=== PATIENT | male | born 1985 | race Caucasian/White ===

== ENCOUNTER 2017-08-04 20:59 | Emergency (ER) | payer SELFPAY ==
[~2017-08-04] VITALS: Ht 182.9 cm; Wt 102.1 kg
--- NOTE | 2017-08-04 21:11 | ED.ADGEN ---
Past History Past Medical History: Other Past Surgical History: Other Alcohol Use: None Drug Use: None Adult General Chief Complaint Chief Complaint ".. I think I got another spider bite on my Lt. leg... I ve had one before.. it looked this way.." HPI HPI Patient is a 32 year old male who presents with above hx and complaints insect bite Lt tolliver with surrounding erythema 10 x 12 cm. Pt. has no striations. No adenopathy. Distal neurovascular intact. Patient does not remember his last tetanus. No recent travel. No specific ill contacts. No history immunosuppression. Patient states he is allergic to Bactrim and Keflex. Review of Systems Review of Systems Constitutional: Denies fever or chills [] Eyes: Denies change in visual acuity, redness, or eye pain [] HENT: Denies nasal congestion or sore throat [] Respiratory: Denies cough or shortness of breath [] Cardiovascular: No additional information not addressed in HPI [] GI: Denies abdominal pain, nausea, vomiting, bloody stools or diarrhea [] : Denies dysuria or hematuria [] Musculoskeletal: Denies back pain or joint pain [] Integument: Denies rash or skin lesions []complaints of insect bite left leg anterior tib-fib area Neurologic: Denies headache, focal weakness or sensory changes [] Endocrine: Denies polyuria or polydipsia [] All other systems were reviewed and found to be within normal limits, except as documented in this note. Family History Family History Noncontributory Current Medications Current Medications Current Medications Medications (Trade) Dose Ordered Sig/Gage Start Time Stop Time Status Last Admin Dose Admin Doxycycline Hyclate (Vibra-Tab) 100 mg 1X ONCE 08/04/17 21:30 08/04/17 21:32 DC 08/04/17 21:55 100 MG Tetanus/ Diphtheria Toxoids Adsorbed (Tenivac Vial) 0.5 ml ONCE ONCE 08/04/17 21:30 08/04/17 21:32 DC 08/04/17 21:57 0.5 ML Allergies Allergies Allergies Coded Allergies Type Severity Reaction Last Updated Verified sulfamethoxazole Allergy Unknown Unknown 03/11/14 No trimethoprim Allergy Unknown Unknown 03/11/14 No Physical Exam Physical Exam Constitutional: Moderately acute distress, non-toxic appearance. [] HENT: Normocephalic, atraumatic, bilateral external ears normal, oropharynx moist, no oral exudates, nose normal. [] Eyes: PERRLA, EOMI, conjunctiva normal, no discharge. [] Neck: Normal range of motion, no tenderness, supple, no stridor. [] Cardiovascular:Heart rate regular rhythm, no murmur [] Lungs & Thorax: Bilateral breath sounds clear to auscultation [] Abdomen: Bowel sounds normal, soft, no tenderness, no masses, no pulsatile masses. [] Skin: Warm, dry, no erythema, no rash. Except findings of insect bite and erythema as per history of present illness Back: No tenderness, no CVA tenderness. [] Extremities: No tenderness, no cyanosis, no clubbing, ROM intact, no edema. [] Neurologic: Alert and oriented X 3, normal motor function, normal sensory function, no focal deficits noted. [] Psychologic: Affect normal, judgement normal, mood normal. [] Current Patient Data Vital Signs Vital Signs Date Time Temp Pulse Resp B/P (MAP) Pulse Ox O2 Delivery O2 Flow Rate FiO2 08/04/17 21:12 97.5 94 19 100 Room Air EKG EKG [] Radiology/Procedures Radiology/Procedures [] Course & Med Decision Making Course & Med Decision Making Pertinent Labs and Imaging studies reviewed. (See chart for details). Patient massage area were Polysporin 4 times a day and as needed. Patient use warm Epsom salt compresses to area 4 times a day. Patient to take doxycycline 1 tablet twice a day for 10 days. Patient follow-up primary care. Return if any concerns. Patient take Tylenol and ibuprofen for pain. Patient return if any concerns. [] Final Impression Final Impression 1. Insect Bite[] 3. Cellulitis left anterior mid tibia fib area Dragon Disclaimer Dragon Disclaimer This electronic medical record was generated, in whole or in part, using a voice recognition dictation system. SAM SUAREZ MD Aug 04, 2017 21:11
[2017-08-04 21:12] VITALS: BP 141/85
[2017-08-04] MEDS ORDERED: DOXY100T9 PO (21:27)
[2017-08-04] MEDS ORDERED: DOXYCYCLINE HYCLATE 100 MG TABLET PO ONE (21:30)
[2017-08-04] MEDS ORDERED: TETANUS AND DIPHTHERIA TOX/PF 0.5 ML VIAL. VAX IM ONE (21:30)
== END 2017-08-04 22:00 | disposition home or self-care (01) ==
LOC: ER 20:59
DX: S80.862A Insect bite (nonvenomous), left lower leg, initial encounter (principal); L03.116 Cellulitis of left lower limb; Z88.1 Allergy status to other antibiotic agents; W57.XXXA Bitten or stung by nonvenomous insect and other nonvenomous arthropods, initial encounter; Y93.89 Activity, other specified; Y99.8 Other external cause status; Y92.89 Other specified places as the place of occurrence of the external cause
CPT/HCPCS: 90471; 90714; 99283-25